=== PATIENT | male | born 1980 | race Caucasian/White ===

== ENCOUNTER 2020-05-16 15:51 | Emergency (ER) | payer SELFPAY ==
[2020-05-16 15:55] VITALS: BP 138/81
--- NOTE | 2020-05-16 15:58 | Emergency Department Report ---
Chief Complaint: Dental/Oral Stated Complaint: TOOTHACHE Time Seen by Provider: 05/16/20 15:55 - HPI History of Present Illness: Patient is a 40-year-old -[place] male that comes to the ER complaining of dental pain for the last several weeks. He has not been able to see a dentist because of Covid. - ROS Review of Systems: Dental pain left lower canine and left upper molar - Exam Vital Signs: Vital Signs 05/16/20 15:54 Temperature 97.7 F Pulse Rate 74 Respiratory 18 Rate Blood Pressure 138/81 O2 Sat by Pulse 100 Oximetry Physical Exam: Patient has no abscess. No trismus. He is controlling secretions. ABCs intact. Vital signs normal. No fever. Patient is ambulatory nontoxic [id number] and taking p.o. MSE screening note: Focused history and physical exam performed. Due to findings the following was ordered: Patient discussed with doctor:: LUISA MURRAY ED Disposition for MSE Clinical Impression: Pain, dental Disposition: Z- MED SCREENING EXAM-LEFT Is pt being admited?: No Does the pt Need Aspirin: No Condition: Stable Additional Instructions: motrin or tylenol for pain FOLLOW UP WITH PCP OR DENTIST FOR CARE REFERRALS BELOW AND ATTACHED TAKE YOUR ER PAPERWORK WITH YOU Referrals: VIKI MOREIRA MD [Staff Physician] - 3-5 Days [facility] [Outside] - 3-5 Days Time of Disposition: 15:57
== END 2020-05-16 16:00 | disposition left against medical advice (07) ==
LOC: ED 15:51
DX: K08.89 Other specified disorders of teeth and supporting structures (principal); Z53.21 Procedure and treatment not carried out due to patient leaving prior to being seen by health care provider